=== PATIENT | female | born 1965 | race Two or more races ===

== ENCOUNTER 2018-10-04 20:39 | Emergency (ER) | payer SELFPAY ==
[~2018-10-04] VITALS: Ht 157.5 cm; Wt 81.6 kg
[2018-10-05] MEDS ORDERED: BACLOFEN 10 MG TAB PO ONE (00:30)
[2018-10-05] MEDS ORDERED: HYDROcodone-ACET 10/325MG TAB PO ONE (00:30)
[2018-10-05 00:59] VITALS: BP 128/77
== END 2018-10-05 00:49 | disposition home or self-care (01) ==
LOC: EDBD 20:39 → ER 20:43
DX: M62.838 Other muscle spasm (principal); V43.52XA Car driver injured in collision with other type car in traffic accident, initial encounter; Y93.89 Activity, other specified; Y99.8 Other external cause status; Y92.410 Unspecified street and highway as the place of occurrence of the external cause
CPT/HCPCS: 71045; 72040; 72110